=== PATIENT | male | born 1945 | race African-American/Black ===

== ENCOUNTER 2017-03-14 08:12 | Emergency (ER) | payer MEDICARE, BC ==
[~2017-03-14] VITALS: Ht 172.7 cm; Wt 78.0 kg
[~2017-03-14 08:12] MED LIST: ASPI81 PO; BACT800T5 PO; METO50TA PO; NORV10TA PO; PRAV20 PO
[2017-03-14 08:14] VITALS: BP 134/63; PULSE 63; RESP 15; TEMP 98.5; O2SAT 98
[2017-03-14 08:31] VITALS: BP 137/63; PULSE 63; RESP 16; O2SAT 99
--- NOTE | 2017-03-14 08:43 | PD ---
HPI Chief Complaint: Cold / Flu Symptoms Time Seen by Provider: 08:30 Travel History International Travel<30 days: No Contact w/Intl Traveler<30days: No Traveled to known affect area: No History of Present Illness HPI Patient is a 71 year old male who presents to ER for evaluation of productive cough and congestion. Patient reports that he has had a cough, congestion, URI for the past 3 weeks. Patient reports no fevers or chills, denies any chest pain or shortness of breath with his symptoms. Patient reports that he has been feeling fine other than his cough that his made him come to the emergency room for evaluation as his cough has been ongoing for the past 3 weeks and she was concerned. Patient with no other complaints at this time. PFSH Past Medical History Autoimmune Disease: No Blood Disorders: No Anxiety: No Depression: No Cancer: No Cardiac Catheterization: Yes Cardiovascular Problems: Yes (triple bypass 2009. ) High Cholesterol: Yes Chemotherapy: No Diabetes: No Diminished Hearing: No Endocrine: No Glaucoma: No Genitourinary: No Hypertension: Yes Immune Disorder: No Musculoskeletal: No Neurologic: No Psychiatric: No Reproductive: No Respiratory: No Myocardial Infarction: Yes Radiation Therapy: No Sickle Cell Disease: No Thyroid Disease: No ?: Not Past Surgical History Abdominal Surgery: No AICD: No Arteriovenous Shunt: No Cardiac Surgery: Yes (TRIPLE BYPASS) Coronary Artery Bypass Graft: Yes (TRIPLE) Ear Surgery: No Endocrine Surgery: No Eye Surgery: No Genitourinary Surgery: No Gynecologic Surgery: No Insulin Pump: No Joint Replacement: No Neurologic Surgery: No Oral Surgery: Yes (DENTAL IMPLANTS) Pacemaker: No Thoracic Surgery: No Other Surgery: Yes (BENIGN SKIN CYST REMOVAL X 2) Social History Alcohol Use: Yes (OCCASSIONAL) Tobacco Use: No Substance Use: No Allergies-Medications (Allergen,Severity, Reaction): Coded Allergies: No Known Allergies (Verified , 11/05/15) Reported Meds & Prescriptions Reported Meds & Active Scripts Active Tessalon Perles (Benzonatate) 100 Mg Cap 100 Mg PO TID PRN Azithromycin 500 Mg Tab 500 Mg PO DAILY Bactrim DS (Sulfamethoxazole-Trimethoprim DS) 1 Tab Tab 1 Tab PO BID 7 Days Reported Pravastatin Sodium 20 Mg Tab 1 Tab PO DAILY Norvasc (Amlodipine Besylate) 10 Mg Tab 10 Mg PO DAILY Metoprolol Tartrate 50 mg (Metoprolol Tartrate) 50 Mg Tab 50 Mg PO DAILY Aspirin 81 Mg Tab 81 Mg PO DAILY Review of Systems General / Constitutional: No: Fever, Chills Eyes: No: Visual changes HENT: No: Headaches Cardiovascular: No: Chest Pain or Discomfort, Tachycardia Respiratory: Positive: Cough, No: Shortness of Breath, Wheezing, Sneezing, Orthopnea, Hemoptysis Gastrointestinal: No: Abdominal Pain Genitourinary: No: Dysuria Musculoskeletal: No: Pain Skin: No Rash Neurologic: No: Weakness Psychiatric: No: Depression Endocrine: No: Polydipsia Hematologic/Lymphatic: No: Easy Bruising Physical Exam Narrative GENERAL: NAD, nontoxic SKIN: Focused skin assessment warm/dry. HEAD: Atraumatic. Normocephalic. EYES: Pupils equal and round. No scleral icterus. No injection or drainage. ENT: No nasal bleeding or discharge. Mucous membranes pink and moist. NECK: Trachea midline. No JVD. CARDIOVASCULAR: Regular rate and rhythm. No murmur appreciated. RESPIRATORY: No accessory muscle use. Clear to auscultation. Breath sounds equal bilaterally. GASTROINTESTINAL: Abdomen soft, non-tender, nondistended. Hepatic and splenic margins not palpable. MUSCULOSKELETAL: No obvious deformities. No clubbing. No cyanosis. No edema. NEUROLOGICAL: Awake and alert. No obvious cranial nerve deficits. Motor grossly within normal limits. Normal speech. PSYCHIATRIC: Appropriate mood and affect; insight and judgment normal. Data Data Last Documented VS Vital Signs Date Time Temp Pulse Resp B/P Pulse Ox O2 Delivery O2 Flow Rate FiO2 03/14/17 08:35 100 Room Air 03/14/17 08:31 63 16 137/63 03/14/17 08:14 98.5 Orders Basic Metabolic Panel (Bmp) (03/14/17 08:34) Comprehensive Metabolic Panel (03/14/17 08:34) Influenzae A/B Antigen (03/14/17 08:34) Chest, Pa & Lat (03/14/17 08:34) Iv Access Insert/Monitor (03/14/17 08:34) Sodium Chloride 0.9% Flush (Ns Flush) (03/14/17 08:45) Complete Blood Count With Diff (03/14/17 09:16) Labs Laboratory Tests Test 03/14/17 03/14/17 08:30 08:40 Sodium Level 140 MEQ/L Potassium Level 4.2 MEQ/L Chloride Level 107 MEQ/L Carbon Dioxide Level 26.6 MEQ/L Anion Gap 6 MEQ/L Blood Urea Nitrogen 10 MG/DL Creatinine 1.23 MG/DL Estimat Glomerular Filtration 70 ML/MIN Rate Random Glucose 110 MG/DL Calcium Level 9.2 MG/DL Total Bilirubin 0.3 MG/DL Aspartate Amino Transf 23 U/L (AST/SGOT) Alanine Aminotransferase 23 U/L (ALT/SGPT) Alkaline Phosphatase 82 U/L Total Protein 8.3 GM/DL Albumin 4.1 GM/DL White Blood Count 8.9 TH/MM3 Red Blood Count 4.91 MIL/MM3 Hemoglobin 13.8 GM/DL Hematocrit 42.8 % Mean Corpuscular Volume 87.2 FL Mean Corpuscular Hemoglobin 28.1 PG Mean Corpuscular Hemoglobin 32.2 % Concent Red Cell Distribution Width 14.6 % Platelet Count 254 TH/MM3 Mean Platelet Volume 7.2 FL Neutrophils (%) (Auto) 69.1 % Lymphocytes (%) (Auto) 17.6 % Monocytes (%) (Auto) 9.5 % Eosinophils (%) (Auto) 3.4 % Basophils (%) (Auto) 0.4 % Neutrophils # (Auto) 6.2 TH/MM3 Lymphocytes # (Auto) 1.6 TH/MM3 Monocytes # (Auto) 0.9 TH/MM3 Eosinophils # (Auto) 0.3 TH/MM3 Basophils # (Auto) 0.0 TH/MM3 CBC Comment DIFF FINAL Differential Comment MDM Medical Decision Making Medical Screen Exam Complete: Yes Emergency Medical Condition: Yes Interpretation(s) Vital Signs Date Time Temp Pulse Resp B/P Pulse Ox O2 Delivery O2 Flow Rate FiO2 03/14/17 08:35 100 Room Air 03/14/17 08:31 63 16 137/63 99 03/14/17 08:14 98.5 63 15 134/63 98 Differential Diagnosis URI, bronchitis, pneumonia, influenza Narrative Course Patient is a 71 year old well appearing male who presents to ER with complaint of productive cough for the past 3 weeks. Patient reports that when he coughs, he brings up a thick yellow sputum. Patient with no fever/chills. No chest pain /sob. Denies wheezing. Patient reports that he feels well other than his cough which he can't seem to get rid of. Patient overall nontoxic on evaluation Plan to obtain basic labs and check for influenza. Will also xray pt's chest to evaluate for possible pneumonia Vital Signs Date Time Temp Pulse Resp B/P Pulse Ox O2 Delivery O2 Flow Rate FiO2 03/14/17 08:35 100 Room Air 03/14/17 08:31 63 16 137/63 99 03/14/17 08:14 98.5 63 15 134/63 98 Laboratory Tests Test 03/14/17 03/14/17 08:30 08:40 Sodium Level 140 MEQ/L (136-145) Potassium Level 4.2 MEQ/L (3.5-5.1) Chloride Level 107 MEQ/L (98-107) Carbon Dioxide Level 26.6 MEQ/L (21.0-32.0) Anion Gap 6 MEQ/L (5-15) Blood Urea Nitrogen 10 MG/DL (7-18) Creatinine 1.23 MG/DL (0.60-1.30) Estimat Glomerular Filtration 70 ML/MIN (>89) Rate Random Glucose 110 MG/DL (74-106) Calcium Level 9.2 MG/DL (8.5-10.1) Total Bilirubin 0.3 MG/DL (0.2-1.0) Aspartate Amino Transf 23 U/L (15-37) (AST/SGOT) Alanine Aminotransferase 23 U/L (12-78) (ALT/SGPT) Alkaline Phosphatase 82 U/L (45-117) Total Protein 8.3 GM/DL (6.4-8.2) Albumin 4.1 GM/DL (3.4-5.0) White Blood Count 8.9 TH/MM3 (4.0-11.0) Red Blood Count 4.91 MIL/MM3 (4.50-5.90) Hemoglobin 13.8 GM/DL (13.0-17.0) Hematocrit 42.8 % (39.0-51.0) Mean Corpuscular Volume 87.2 FL (80.0-100.0) Mean Corpuscular Hemoglobin 28.1 PG (27.0-34.0) Mean Corpuscular Hemoglobin 32.2 % Concent (32.0-36.0) Red Cell Distribution Width 14.6 % (11.6-17.2) Platelet Count 254 TH/MM3 (150-450) Mean Platelet Volume 7.2 FL (7.0-11.0) Neutrophils (%) (Auto) 69.1 % (16.0-70.0) Lymphocytes (%) (Auto) 17.6 % (9.0-44.0) Monocytes (%) (Auto) 9.5 % (0.0-8.0) Eosinophils (%) (Auto) 3.4 % (0.0-4.0) Basophils (%) (Auto) 0.4 % (0.0-2.0) Neutrophils # (Auto) 6.2 TH/MM3 (1.8-7.7) Lymphocytes # (Auto) 1.6 TH/MM3 (1.0-4.8) Monocytes # (Auto) 0.9 TH/MM3 (0-0.9) Eosinophils # (Auto) 0.3 TH/MM3 (0-0.4) Basophils # (Auto) 0.0 TH/MM3 (0-0.2) CBC Comment DIFF FINAL Differential Comment Microbiology Date/Time Procedure Status Source Growth 03/14/17 08:45 Influenza Types A,B Antigen ([facility]STER) - Final Complete Nasal Washing NEGATIVE FOR FLU A AND B ANTIGEN.... Last Impressions Chest X-Ray 03/14/17 0834 Signed Impressions: Service Date/Time: Tuesday, March 14, 2017 08:59 - CONCLUSION: No acute disease. Status post CABG. Malik Kumari MD Patient nontoxic on evaluation, patient well-appearing. All labs and all studies reviewed with patient in detail. Patient most likely bronchitis, will treat as such. Patient will follow up with his primary care doctor, signs and symptoms of when to return to emergency room was reviewed with patient in detail. Diagnosis Primary Impression: Bronchitis Patient Instructions: General Instructions Additional Instructions: Please follow-up with your primary care doctor Returns to emergency room as needed or if symptoms worsen or progress Please take Tylenol or ibuprofen for fever Med/Other Pt SpecificInfo: Prescription(s) given Scripts Benzonatate (Tessalon Perles)100 Mg Oyx444 Mg PO TID PRN (COUGH) #30 CAP Ref 0 Prov:Saima Costello DO 03/14/17 Azithromycin 500 Mg Ldo549 Mg PO DAILY #5 TAB Ref 0 Prov:Saima Costello DO 03/14/17 Disposition: 01 DISCHARGE HOME Condition: Stable Saima Costello DO March 14, 2017 08:43
[2017-03-14] MEDS ORDERED: SODIUM CHLORIDE 0.9% FLUSH 10 ML FLUSH IVF PRN (08:45)
--- NOTE | 2017-03-14 09:06 | RADRPT ---
EXAM DATE/TIME: 03/14/2017 08:59 [facility] COMPARISON: No previous studies available for comparison. INDICATIONS : Cough for a week. MEDICAL HISTORY : None. SURGICAL HISTORY : CABG. ENCOUNTER: Initial ACUITY: 1 week PAIN SCORE: 2/10 LOCATION: Bilateral chest FINDINGS: PA and lateral views of the chest demonstrate the lungs to be symmetrically aerated without evidence of mass, infiltrate or effusion. Status post median sternotomy CABG. The cardiomediastinal contours are unremarkable. Osseous structures are intact. CONCLUSION: No acute disease. Status post CABG. Malik Kumari MD on March 14, 2017 at 9:04 Board Certified Radiologist. This report was verified electronically.
[2017-03-14 09:16] LABS: ANION GAP 6 MEQ/L (5-15); AST (GOT) 23 U/L (15-37); BICARBONATE 26.6 MEQ/L (21.0-32.0); BLOOD UREA NITROGEN 10 MG/DL (7-18); CHLORIDE 107 MEQ/L (98-107); GLOMERULAR FILTRATION RATE 70 ML/MIN (>89); POTASSIUM 4.2 MEQ/L (3.5-5.1); SODIUM (NA) 140 MEQ/L (136-145)
[2017-03-14 09:19] LABS: ALKALINE PHOSPHATASE 82 U/L (45-117); ALT (GPT) 23 U/L (12-78); TOTAL BILIRUBIN ADULT 0.3 MG/DL (0.2-1.0)
[2017-03-14 09:23] LABS: AUTOMATED NEUTROPHIL # 6.2 TH/MM3 (1.8-7.7); BASOPHIL % 0.4 % (0.0-2.0); EOSINOPHIL # 0.3 TH/MM3 (0-0.4); EOSINOPHIL % 3.4 % (0.0-4.0); HEMATOCRIT 42.8 % (39.0-51.0); HEMO FLAGS DIFF FINAL; LYMPH % 17.6 % (9.0-44.0); LYMPHOCYTE # 1.6 TH/MM3 (1.0-4.8); MEAN CELL VOLUME 87.2 FL (80.0-100.0); MEAN CORPUSCULAR HEMOGLOBIN 28.1 PG (27.0-34.0); MEAN CORPUSCULAR HGB CONC 32.2 % (32.0-36.0); MONO % 9.5 % (0.0-8.0); NEUT % 69.1 % (16.0-70.0); PLATELET COUNT 254 TH/MM3 (150-450); RED BLOOD COUNT 4.91 MIL/MM3 (4.50-5.90); RED CELL DISTRIBUTION WIDTH 14.6 % (11.6-17.2); WHITE BLOOD COUNT 8.9 TH/MM3 (4.0-11.0)
[2017-03-14] MEDS ORDERED: AZIT500T2 PO (09:57)
[2017-03-14] MEDS ORDERED: BENZ100 PO (09:58)
== END 2017-03-14 10:06 | disposition home or self-care (01) ==
LOC: NEPC 08:12
DX: R05 Cough (principal); E78.00 Pure hypercholesterolemia, unspecified; I25.2 Old myocardial infarction; I10 Essential (primary) hypertension; Z95.1 Presence of aortocoronary bypass graft
CPT/HCPCS: 71020; 80053; 85025; 87804; 99283